=== PATIENT | male | born 1960 | race Two or more races ===

== ENCOUNTER 2019-05-23 20:44 | Emergency (ER) | payer MEDICARE, MEDICAID ==
[2019-05-23 23:07] LABS: CARBON DIOXIDE,CO2 34.2 mmol/L (21.0-32.0); POTASSIUM,K 4.6 mmol/L (3.5-5.1)
--- NOTE | 2019-05-23 23:11 | CR ---
Indication: Shortness of breath Technique: Chest 1 view Comparison: May 05, 2019 Findings/Impression: Stable cardiomegaly. Normal pulmonary vasculature. New, moderate size right pleural effusion. Small left pleural effusion. No new focal infiltrate or pneumothorax. No acute osseous abnormality. Dictated by Jonna Houston MD @ May 23 2019 11:08PM Signed by Dr. Jonna Houston @ May 23 2019 11:09PM
--- NOTE | 2019-05-24 01:47 | EDM.PDOC ---
ED HPI GENERAL MEDICAL PROBLEM - General Chief Complaint: Respiratory Problem Stated Complaint: HARD TIME BREATHING Time Seen by Provider: 05/23/19 22:00 Source of Information: Reports: Patient History Limitations: Reports: No Limitations - Related Data Allergies Allergy/AdvReac Type Severity Reaction Status Date / Time No Known Allergies Allergy Verified 05/23/19 21:22 Home Meds: Home Meds Acetaminophen [Tylenol] 2 tab PO DAILY 06/24/18 [History] Brimonidine/Timolol [Combigan 0.2%/0.5% Ophth Soln] 1 drop EARLF BID 06/24/18 [ History] Cholecalciferol (Vitamin D3) [Vitamin D3] 50,000 units PO ASDIRECTED 06/24/18 [ History] Diltiazem HCl [Dilt-XR] 120 mg PO DAILY 06/24/18 [History] Dorzolamide HCl 1 drop EYELF DAILY 06/24/18 [History] Furosemide 40 mg PO DAILY 06/24/18 [History] Insulin Glarg,Human.Rec.Analog [Lantus] 15 units SUBCUT BEDTIME 06/24/18 [ History] Insulin Lispro [HumaLOG] 5 units SUBCUT ASDIRECTED PRN 06/24/18 [History] Ketoconazole [Nizoral 2% Crm] 1 applic TOP ASDIRECTED PRN 06/24/18 [History] Latanoprost/Pf [Latanoprost 0.005% Eye Drop] 1 drop EYELF BEDTIME 06/24/18 [ History] Levothyroxine Sodium [Synthroid] 112 mcg PO ASDIRECTED 06/24/18 [History] Levothyroxine Sodium [Synthroid] 125 mg PO ASDIRECTED 06/24/18 [History] Losartan Potassium 100 mg PO DAILY 06/24/18 [History] Multivitamin/Iron/Folic Acid [Centrum Adults Tablet] 1 tab PO DAILY 06/24/18 [ History] Ranitidine HCl 150 mg PO BID 06/24/18 [History] Rosuvastatin Calcium 20 mg PO DAILY 06/24/18 [History] hydrOXYzine HCL [hydrOXYzine] 25 mg PO QID PRN 06/24/18 [History] traZODone HCl [Trazodone HCl] 50 mg PO BEDTIME 06/24/18 [History] Albuterol Sulfate [Albuterol Sulfate Hfa] 1 puff INH ASDIRECTED 05/23/19 [ History] Past Medical History HEENT History: Reports: Glaucoma, Impaired Vision, Other (See Below) Other HEENT History: wears glasses, no teeth, rt eye prostesis Cardiovascular History: Reports: Heart Murmur, High Cholesterol, Hypertension Other Cardiovascular History: "slight murmur" Respiratory History: Reports: None Gastrointestinal History: Reports: GERD Genitourinary History: Reports: Dialysis Other Genitourinary History: dialysis on tues, th and sat Musculoskeletal History: Reports: None Neurological History: Reports: Neuropathy, Diabetic Psychiatric History: Reports: None Endocrine/Metabolic History: Reports: Diabetes, Type II, Hypothyroidism Hematologic History: Reports: None Immunologic History: Reports: None Oncologic (Cancer) History: Reports: None Dermatologic History: Reports: None - Infectious Disease History Infectious Disease History: Reports: None - Past Surgical History Head Surgeries/Procedures: Reports: None HEENT Surgical History: Reports: Cataract Surgery, Eye Surgery Cardiovascular Surgical History: Reports: None Respiratory Surgical History: Reports: None GI Surgical History: Reports: Other (See Below) Other GI Surgeries/Procedures: hx laparoscopy Male Surgical History: Reports: Other (See Below) Other Male Surgeries/Procedures: peritoneal dialysis cath placement, AV fistula insertion-lt upper arm Endocrine Surgical History: Reports: None Neurological Surgical History: Reports: None Musculoskeletal Surgical History: Reports: Shoulder Surgery, Other (See Below) Other Musculoskeletal Surgeries/Procedures:: rt foot surgery x2, 2nd toe amputation-rt foot Oncologic Surgical History: Reports: None Dermatological Surgical History: Reports: None Social & Family History - Family History Family Medical History: Noncontributory - Tobacco Use Smoking Status *Q: Never Smoker - Caffeine Use Caffeine Use: Reports: Coffee - Recreational Drug Use Recreational Drug Use: No ED ROS GENERAL - Review of Systems Review Of Systems: See Below Constitutional: Reports: Fatigue HEENT: Reports: No Symptoms Respiratory: Reports: Shortness of Breath, Pleuritic Chest Pain Cardiovascular: Reports: Chest Pain, Dyspnea on Exertion Endocrine: Reports: Fatigue GI/Abdominal: Reports: No Symptoms : Reports: No Symptoms Musculoskeletal: Reports: No Symptoms Skin: Reports: No Symptoms Neurological: Reports: No Symptoms Psychiatric: Reports: No Symptoms Hematologic/Lymphatic: Reports: No Symptoms Immunologic: Reports: No Symptoms ED EXAM, GENERAL - Physical Exam Exam: See Below Free Text/Narrative:: 59-year-old male presents the emergency room with a chief complaint of chest pain and shortness of breath. Patient has decreased breath sounds on left and right. Patient denies chills or fever Exam Limited By: No Limitations General Appearance: Alert, WD/WN, No Apparent Distress Eye Exam: Bilateral Eye: Normal Fundi, Normal Inspection Ear Exam: Bilateral Ear: Auricle Normal, Canal Normal Nose: Normal Inspection, Normal Mucosa, No Blood Throat/Mouth: Normal Inspection, Normal Lips, Normal Teeth Head: Atraumatic, Normocephalic Neck: Normal Inspection, Supple, Non-Tender Respiratory/Chest: No Respiratory Distress, Lungs Clear Cardiovascular: Normal Peripheral Pulses, Regular Rate, Rhythm GI/Abdominal: Normal Bowel Sounds, Soft, Non-Tender (Male) Exam: Deferred Rectal (Males) Exam: Deferred Back Exam: Normal Inspection, Full Range of Motion Extremities: Normal Inspection, Normal Range of Motion Neurological: Alert, Oriented, CN II-XII Intact Psychiatric: Normal Affect, Normal Mood Skin Exam: Warm, Dry, Intact Lymphatic: No Adenopathy EKG INTERPRETATION Rhythm: NSR Rate (Beats/Min): 74 Course - Vital Signs Last Recorded V/S: Last Vital Signs Temp 98.3 F 05/23/19 21:23 Pulse 74 05/24/19 00:15 Resp 18 05/24/19 00:15 BP 155/84 H 05/24/19 00:15 Pulse Ox 98 05/24/19 00:15 - Orders/Labs/Meds Orders: Active Orders 24 hr Category Date Time Status EKG 12 Lead [EKG Documentation Completion] [RC] STAT Care 05/24/19 01:43 Ordered Labs: Laboratory Tests 05/23/19 05/23/19 05/24/19 Range/Units 22:34 22:34 00:36 WBC 4.45 (4.0-11.0) K/uL RBC 2.71 L (4.50-5.90) M/uL Hgb 8.8 L (13.0-17.0) g/dL Hct 26.9 L (38.0-50.0) % MCV 99.3 H (80.0-98.0) fL MCH 32.5 H (27.0-32.0) pg MCHC 32.7 (31.0-37.0) g/dL RDW Std Deviation 51.0 (28.0-62.0) fl RDW Coeff of René 14 (11.0-15.0) % Plt Count 134 L (150-400) K/uL MPV 9.00 (7.40-12.00) fL Neut % (Auto) 56.2 (48.0-80.0) % Lymph % (Auto) 24.3 (16.0-40.0) % [place] % (Auto) 16.6 H (0.0-15.0) % Eos % (Auto) 2.2 (0.0-7.0) % Baso % (Auto) 0.7 (0.0-1.5) % Neut # (Auto) 2.5 (1.4-5.7) K/uL Lymph # (Auto) 1.1 (0.6-2.4) K/uL [place] # (Auto) 0.7 (0.0-0.8) K/uL Eos # (Auto) 0.1 (0.0-0.7) K/uL Baso # (Auto) 0.0 (0.0-0.1) K/uL Nucleated RBC % 0.0 /100WBC Nucleated RBCs # 0 K/uL Sodium 140 (136-148) mmol/L Potassium 4.6 (3.5-5.1) mmol/L Chloride 100 (98-107) mmol/L Carbon Dioxide 34.2 H (21.0-32.0) mmol/L BUN 18 (7.0-18.0) mg/dL Creatinine 4.5 H (0.8-1.3) mg/dL Est Cr Clr Drug Dosing 17.52 mL/min Estimated GFR (MDRD) 13.6 ml/min Glucose 231 H (74-106) mg/dL Calcium 9.2 (8.5-10.1) mg/dL Total Bilirubin 0.6 (0.2-1.0) mg/dL AST 18 (15-37) IU/L ALT 19 (14-63) IU/L Alkaline Phosphatase 94 (46-116) U/L Troponin I 0.261 H* 0.264 H* (0.000-0.056) ng/mL Total Protein 6.7 (6.4-8.2) g/dL Albumin 3.3 L (3.4-5.0) g/dL Globulin 3.4 (2.6-4.0) g/dL Albumin/Globulin Ratio 1.0 (0.9-1.6) Departure - Departure Time of Disposition: 01:48 Disposition: DC/Tfer to Acute Hospital 02 Condition: Good Clinical Impression: Chest pain, Pleural effusion - Discharge Information Referrals: Conrado Wilde MD [Primary Care Provider] - Forms: ED Department Discharge Sepsis Event Note - Evaluation Sepsis Screening Result: No Definite Risk - Focused Exam Vital Signs: Vital Signs Temp Pulse Resp BP Pulse Ox 05/24/19 00:15 74 18 155/84 H 98 05/23/19 21:23 98.3 F 67 16 138/57 L 97 Date Exam was Performed: 05/24/19 Time Exam was Performed: 01:48 - My Orders Last 24 Hours: My Active Orders 05/24/19 01:43 EKG 12 Lead [EKG Documentation Completion] [RC] STAT - Assessment/Plan Last 24 Hours: My Active Orders 05/24/19 01:43 EKG 12 Lead [EKG Documentation Completion] [RC] STAT
== END 2019-05-24 02:45 ==
LOC: MW.ED 20:44
DX: J90 Pleural effusion, not elsewhere classified (principal); E78.00 Pure hypercholesterolemia, unspecified; I10 Essential (primary) hypertension; K21.9 Gastro-esophageal reflux disease without esophagitis; E11.40 Type 2 diabetes mellitus with diabetic neuropathy, unspecified; E03.9 Hypothyroidism, unspecified; Z79.4 Long term (current) use of insulin; Z79.899 Other long term (current) drug therapy; Z99.2 Dependence on renal dialysis
CPT/HCPCS: 36415; 71045; 71045-26; 80053; 84484; 85025; 99285; 99285-25

== ENCOUNTER 2019-06-12 05:47 | Emergency (ER) | payer MEDICARE, MEDICAID ==
--- NOTE | 2019-06-12 06:20 | EDM.PDOC ---
ED HPI GENERAL MEDICAL PROBLEM - General Chief Complaint: ENT Problem Stated Complaint: DIZZINESS Time Seen by Provider: 06/12/19 06:15 Source of Information: Reports: Patient - History of Present Illness INITIAL COMMENTS - FREE TEXT/NARRATIVE: The patient is a 59-year-old male dialysis patient who presents to the ER for dizziness and a fullness in his left ear. The patient states that he has been intermittently lightheaded and dizzy for the last few months. Sometimes if he stands up quickly it comes on but then it goes away. No unusual headaches, no fevers, no chills, no syncope or near syncope, no palpitations, chest pain, no shortness of breath, no visual changes, no paresthesias, no unilateral weakness , no generalized weakness. He states that he was in his normal state of health when he woke up this morning with a fullness in his left ear and he cannot hear much out of his left ear. His right ear is fine. There is no pain. Associated with this left ear fullness he just feels lightheaded like things are moving but they are not spinning. No nasal congestion, no other acute complaints. no pain Pain Score (Numeric/FACES): 0 - Related Data Allergies Allergy/AdvReac Type Severity Reaction Status Date / Time No Known Allergies Allergy Verified 06/12/19 05:56 Home Meds: Home Meds Acetaminophen [Tylenol] 2 tab PO DAILY 06/24/18 [History] Brimonidine/Timolol [Combigan 0.2%/0.5% Ophth Soln] 1 drop EARLF BID 06/24/18 [ History] Cholecalciferol (Vitamin D3) [Vitamin D3] 50,000 units PO ASDIRECTED 06/24/18 [ History] Diltiazem HCl [Dilt-XR] 120 mg PO DAILY 06/24/18 [History] Dorzolamide HCl 1 drop EYELF DAILY 06/24/18 [History] Furosemide 40 mg PO DAILY 06/24/18 [History] Insulin Glarg,Human.Rec.Analog [Lantus] 15 units SUBCUT BEDTIME 06/24/18 [ History] Insulin Lispro [HumaLOG] 5 units SUBCUT ASDIRECTED PRN 06/24/18 [History] Ketoconazole [Nizoral 2% Crm] 1 applic TOP ASDIRECTED PRN 06/24/18 [History] Latanoprost/Pf [Latanoprost 0.005% Eye Drop] 1 drop EYELF BEDTIME 06/24/18 [ History] Levothyroxine Sodium [Synthroid] 112 mcg PO ASDIRECTED 06/24/18 [History] Levothyroxine Sodium [Synthroid] 125 mg PO ASDIRECTED 06/24/18 [History] Losartan Potassium 100 mg PO DAILY 06/24/18 [History] Multivitamin/Iron/Folic Acid [Centrum Adults Tablet] 1 tab PO DAILY 06/24/18 [ History] Ranitidine HCl 150 mg PO BID 06/24/18 [History] Rosuvastatin Calcium 20 mg PO DAILY 06/24/18 [History] hydrOXYzine HCL [hydrOXYzine] 25 mg PO QID PRN 06/24/18 [History] traZODone HCl [Trazodone HCl] 50 mg PO BEDTIME 06/24/18 [History] Albuterol Sulfate [Albuterol Sulfate Hfa] 1 puff INH ASDIRECTED 05/23/19 [ History] Past Medical History HEENT History: Reports: Glaucoma, Impaired Vision, Other (See Below) Other HEENT History: wears glasses, no teeth, rt eye prostesis Cardiovascular History: Reports: Heart Murmur, High Cholesterol, Hypertension Other Cardiovascular History: "slight murmur" Respiratory History: Reports: None Gastrointestinal History: Reports: GERD Genitourinary History: Reports: Dialysis Other Genitourinary History: dialysis on thursday, thursday and thursday Musculoskeletal History: Reports: None Neurological History: Reports: Neuropathy, Diabetic Psychiatric History: Reports: None Endocrine/Metabolic History: Reports: Diabetes, Type II, Hypothyroidism Hematologic History: Reports: None Immunologic History: Reports: None Oncologic (Cancer) History: Reports: None Dermatologic History: Reports: None - Infectious Disease History Infectious Disease History: Reports: None - Past Surgical History Head Surgeries/Procedures: Reports: None HEENT Surgical History: Reports: Cataract Surgery, Eye Surgery Cardiovascular Surgical History: Reports: None Respiratory Surgical History: Reports: None GI Surgical History: Reports: Other (See Below) Other GI Surgeries/Procedures: hx laparoscopy Male Surgical History: Reports: Other (See Below) Other Male Surgeries/Procedures: peritoneal dialysis cath placement, AV fistula insertion-lt upper arm Endocrine Surgical History: Reports: None Neurological Surgical History: Reports: None Musculoskeletal Surgical History: Reports: Shoulder Surgery, Other (See Below) Other Musculoskeletal Surgeries/Procedures:: rt foot surgery x2, 2nd toe amputation-rt foot Oncologic Surgical History: Reports: None Dermatological Surgical History: Reports: None Social & Family History - Family History Family Medical History: Noncontributory - Tobacco Use Smoking Status *Q: Never Smoker - Caffeine Use Caffeine Use: Reports: Coffee - Recreational Drug Use Recreational Drug Use: No ED ROS GENERAL - Review of Systems Review Of Systems: See Below (Positive for decreased hearing in the left ear, positive for dizziness, negative for headache, negative for chest pain, negative for fevers, negative for chills, negative for unilateral weakness, all other Positives and pertinent negatives as per HPI. All other pertinent systems were reviewed and are negative) ED EXAM, DIZZINESS - Physical Exam Exam: See Below Text/Narrative:: Constitutional: No acute distress, Non-toxic appearance HEENT.: Normocephalic, Atraumatic, left eye is present and has normally reactive pupils and extraocular muscle is intact, External ears are atraumatic, right tympanic membrane is normal, left tympanic membrane has no effusions, no purulence, but it does appear retracted oropharynx clear and moist without lesions or masses, nares are patent without epistaxis Neck: Normal range of motion, Trachea Midline, No stridor Respiratory.: No respiratory distress, No tachypnea, Lungs Clear to Auscultation bilaterally without wheezes, rales, or rhonchi Cardiovascular.: Regular rate and Rhythm without murmurs, rubs, or gallops, good peripheral perfusion GI: Abdomen soft and non tender, no masses, no rebound, rigidity, or guarding Genital Urinary: Deferred Musculoskeletal: Good range of motion. All 4 extremities present and atraumatic , no edema Back: Full Range of Motion Skin: Warm, Dry, Color is ethnicity appropriate, No acute rash. Lymphatic: No lymphadenopathy noted Neurological: Alert, Awake and oriented x 3, No focal deficits noted appreciate , normal gait, cranial nerves grossly intact, cerebellar function tests intact, GCS 15 Psych: Affect, Judgement, mood normal Course - Vital Signs Text/Narrative:: While it is recognized that this is a dialysis patient who has the potential for numerous comorbidities, he is not describing anything per history and there is nothing on exam that is concerning for any malignant pathology such as an intracranial hemorrhage, subarachnoid hemorrhage, cerebral venous thrombosis, brain mass, acute electrolyte disorders, sepsis, etc. Waking up with decreased hearing in his left ear with an associated retracted tympanic membrane giving him nonspecific dizziness and a normal neurological exam is most consistent with eustachian tube dysfunction and at this time the patient does not require any imaging, work, etc. This time the patient is stable for discharge and close outpatient follow-up with his primary care physician if symptoms do not resolve within the next couple of days. Last Recorded V/S: Last Vital Signs Temp 36.4 C 06/12/19 05:56 Pulse 87 06/12/19 05:56 Resp 16 06/12/19 05:56 BP 155/69 H 06/12/19 05:56 Pulse Ox 100 06/12/19 05:56 Departure - Departure Time of Disposition: 06:20 Disposition: Home, Self-Care 01 Condition: Good Clinical Impression: Dizziness, nonspecific - Discharge Information Instructions: Dizziness, [id number] Referrals: Conrado Wilde MD [Primary Care Provider] - Additional Instructions: Dizziness Dizziness is a common problem. It makes you feel unsteady or lightheaded. You may feel like you are about to pass out (faint). Dizziness can lead to injury if you stumble or fall. Anyone can get dizzy, but dizziness is more common in older adults. This condition can be caused by a number of things, but fortunately at this time you do not have any signs of anything 'bad'. Follow-up with your doctor if you do not improve in the next several days Return to the emergency department if you start to have chest pain, you feel like your heart is racing, you are passing out, you have trouble speaking, you have trouble moving part of your face or part of your body or any other concerns Sepsis Event Note - Evaluation Sepsis Screening Result: No Definite Risk - Focused Exam Vital Signs: Vital Signs Temp Pulse Resp BP Pulse Ox 06/12/19 05:56 36.4 C 87 16 155/69 H 100 Date Exam was Performed: 06/12/19 Time Exam was Performed: 06:14
== END 2019-06-12 06:30 | disposition home or self-care (01) ==
LOC: MW.ED 05:47
DX: R42 Dizziness and giddiness (principal); E78.00 Pure hypercholesterolemia, unspecified; I10 Essential (primary) hypertension; K21.9 Gastro-esophageal reflux disease without esophagitis; E11.40 Type 2 diabetes mellitus with diabetic neuropathy, unspecified; E03.9 Hypothyroidism, unspecified; Z99.2 Dependence on renal dialysis; Z79.899 Other long term (current) drug therapy; Z79.4 Long term (current) use of insulin
CPT/HCPCS: 99283

== ENCOUNTER 2019-06-12 17:48 | Emergency (ER) | payer MEDICARE, MEDICAID ==
[2019-06-12] MEDS: Ondansetron 4 MG/2 ML SDV IVPUSH ONE (18:08)
[2019-06-12] MEDS: Meclizine 25 MG Tab PO ONE (18:10)
--- NOTE | 2019-06-12 18:11 | EDM.PDOC ---
ED HPI GENERAL MEDICAL PROBLEM - General Chief Complaint: General Stated Complaint: dizzness,vomiting Time Seen by Provider: 06/12/19 18:08 Source of Information: Reports: Patient History Limitations: Reports: No Limitations - History of Present Illness INITIAL COMMENTS - FREE TEXT/NARRATIVE: Patient 59-year-old male with a past medical history of diabetes end-stage renal disease on hemodialysis on Thursday schedule. Patient presents with a chief complaint of dizziness. Patient states the dizziness started yesterday morning. Patient reports feeling worsening dizziness when he stands up from a seated position. Patient feels a spinning sensation of his head when he does so. Patient denies any prior similar symptoms. Patient states that he started vomiting this morning has been vomiting continuously all day. Patient was seen in this morning for the same complaint and was deemed to be benign peripheral vertigo. Patient states his symptoms have worsened and he came back to the ER. Patient denies any fevers, headache, no extremity or upper extremity weakness. Patient denies tinnitus. Pmhx: Per HPI and chart Pshx: Per chart Family Hx: noncontributory Smoking history? no Etoh use? none Drug use? none In addition to that documented in the HPI above, the additional ROS was obtained : Constitutional: Denies fevers or chills Eyes: Denies vision changes ENMT: Denies sore throat CV: Denies chest pain Resp: Denies SOB GI: Per HPI : Denies painful urination MSK: Denies recent trauma Skin: Denies new rashes Neuro: Per HPI Endocrine: Denies unexpected weight loss Heme: Denies bleeding disorders I have reviewed the triage vital signs Const: Well nourished, well developed, appears stated age Eyes: PERRL, no conjunctival injection HENT: NCAT, Neck supple without meningismus CV: RRR, Warm, well-perfused extremities RESP: CTAB, Unlabored respiratory effort GI: soft, non-tender, non-distended, no masses MSK: No gross deformities appreciated Skin: Warm, dry. No rashes Neuro: Dizziness reproduced with rotation of the head. Alert, heel builder machine II-XII intact. [id number] intact. Sensation and motor function of extremities grossly intact. Psych: Appropriate mood and affect Assessment and plan: Patient 59-year-old male with complaints of dizziness and vomiting. Patient's vital signs within normal limits. Patient's exam is significant for reproducible dizziness with head movements as well as lateral gaze. Patient has no other significant neurologic deficits such as focal weakness or abnormal cerebellar exam. Patient's labs were checked to rule out significant electrolyte abnormalities given his ESRD status and vomiting. Patient's slightly hyperkalemic with a level of 5.7. However, the patient had a EKG which was unremarkable for signs related to hyperkalemia. No indication for emergent dialysis at this time since the patient has regularly scheduled dialysis in the next day. This patient's dizziness seems likely secondary to a benign peripheral vertigo process. However, the patient needs emesis controlled. His vomiting continued after Zofran and was given Reglan prior to signout. Patient was signed out to overnight attending pending tolerance of p.o. If the patient is able to tolerate oral fluids, I believe the patient will be able to be discharged. He can be discharged with an antiemetic as his QTC is within normal limits. He will be recommended to stop tramadol while taking antiemetics. - Related Data Allergies Allergy/AdvReac Type Severity Reaction Status Date / Time No Known Allergies Allergy Verified 06/12/19 18:04 Home Meds: Home Meds Acetaminophen [Tylenol] 2 tab PO DAILY 06/24/18 [History] Brimonidine/Timolol [Combigan 0.2%/0.5% Ophth Soln] 1 drop EARLF BID 06/24/18 [ History] Cholecalciferol (Vitamin D3) [Vitamin D3] 50,000 units PO ASDIRECTED 06/24/18 [ History] Diltiazem HCl [Dilt-XR] 120 mg PO DAILY 06/24/18 [History] Dorzolamide HCl 1 drop EYELF DAILY 06/24/18 [History] Furosemide 40 mg PO DAILY 06/24/18 [History] Insulin Glarg,Human.Rec.Analog [Lantus] 15 units SUBCUT BEDTIME 06/24/18 [ History] Insulin Lispro [HumaLOG] 5 units SUBCUT ASDIRECTED PRN 06/24/18 [History] Ketoconazole [Nizoral 2% Crm] 1 applic TOP ASDIRECTED PRN 06/24/18 [History] Latanoprost/Pf [Latanoprost 0.005% Eye Drop] 1 drop EYELF BEDTIME 06/24/18 [ History] Levothyroxine Sodium [Synthroid] 112 mcg PO ASDIRECTED 06/24/18 [History] Levothyroxine Sodium [Synthroid] 125 mg PO ASDIRECTED 06/24/18 [History] Losartan Potassium 100 mg PO DAILY 06/24/18 [History] Multivitamin/Iron/Folic Acid [Centrum Adults Tablet] 1 tab PO DAILY 06/24/18 [ History] Ranitidine HCl 150 mg PO BID 06/24/18 [History] Rosuvastatin Calcium 20 mg PO DAILY 06/24/18 [History] hydrOXYzine HCL [hydrOXYzine] 25 mg PO QID PRN 06/24/18 [History] traZODone HCl [Trazodone HCl] 50 mg PO BEDTIME 06/24/18 [History] Albuterol Sulfate [Albuterol Sulfate Hfa] 1 puff INH ASDIRECTED 05/23/19 [ History] Past Medical History HEENT History: Reports: Glaucoma, Impaired Vision, Other (See Below) Other HEENT History: wears glasses, no teeth, rt eye prostesis Cardiovascular History: Reports: Heart Murmur, High Cholesterol, Hypertension Other Cardiovascular History: "slight murmur" Respiratory History: Reports: None Gastrointestinal History: Reports: GERD Genitourinary History: Reports: Dialysis Other Genitourinary History: dialysis on thursday, thursday and thursday Musculoskeletal History: Reports: None Neurological History: Reports: Neuropathy, Diabetic Psychiatric History: Reports: None Endocrine/Metabolic History: Reports: Diabetes, Type II, Hypothyroidism Hematologic History: Reports: None Immunologic History: Reports: None Oncologic (Cancer) History: Reports: None Dermatologic History: Reports: None - Infectious Disease History Infectious Disease History: Reports: None - Past Surgical History Head Surgeries/Procedures: Reports: None HEENT Surgical History: Reports: Cataract Surgery, Eye Surgery Cardiovascular Surgical History: Reports: None Respiratory Surgical History: Reports: None GI Surgical History: Reports: Other (See Below) Other GI Surgeries/Procedures: hx laparoscopy Male Surgical History: Reports: Other (See Below) Other Male Surgeries/Procedures: peritoneal dialysis cath placement, AV fistula insertion-lt upper arm Endocrine Surgical History: Reports: None Neurological Surgical History: Reports: None Musculoskeletal Surgical History: Reports: Shoulder Surgery, Other (See Below) Other Musculoskeletal Surgeries/Procedures:: rt foot surgery x2, 2nd toe amputation-rt foot Oncologic Surgical History: Reports: None Dermatological Surgical History: Reports: None Social & Family History - Family History Family Medical History: Noncontributory - Tobacco Use Smoking Status *Q: Never Smoker - Caffeine Use Caffeine Use: Reports: Coffee ED ROS GENERAL - Review of Systems Review Of Systems: See Below ED EXAM, GENERAL - Physical Exam Exam: See Below Course - Vital Signs Last Recorded V/S: Last Vital Signs Temp 35.3 C L 06/12/19 20:17 Pulse 81 06/12/19 20:17 Resp 16 06/12/19 20:17 BP 159/75 H 06/12/19 20:17 Pulse Ox 98 06/12/19 20:17 - Orders/Labs/Meds Orders: Active Orders 24 hr Category Date Time Status Blood Glucose Check, Bedside [RC] ONETIME Care 06/12/19 18:08 Active EKG Documentation Completion [RC] STAT Care 06/12/19 18:28 Active Labs: Laboratory Tests 06/12/19 06/12/19 06/12/19 Range/Units 18:00 18:00 18:00 WBC 7.31 (4.0-11.0) K/uL RBC 3.50 L (4.50-5.90) M/uL Hgb 11.4 L (13.0-17.0) g/dL Hct 35.1 L (38.0-50.0) % MCV 100.3 H (80.0-98.0) fL MCH 32.6 H (27.0-32.0) pg MCHC 32.5 (31.0-37.0) g/dL RDW Std Deviation 53.3 (28.0-62.0) fl RDW Coeff of René 15 (11.0-15.0) % Plt Count 242 (150-400) K/uL MPV 9.10 (7.40-12.00) fL Neut % (Auto) 59.5 (48.0-80.0) % Lymph % (Auto) 28.9 (16.0-40.0) % Bryan % (Auto) 9.3 (0.0-15.0) % Eos % (Auto) 1.6 (0.0-7.0) % Baso % (Auto) 0.7 (0.0-1.5) % Neut # (Auto) 4.4 (1.4-5.7) K/uL Lymph # (Auto) 2.1 (0.6-2.4) K/uL Bryan # (Auto) 0.7 (0.0-0.8) K/uL Eos # (Auto) 0.1 (0.0-0.7) K/uL Baso # (Auto) 0.1 (0.0-0.1) K/uL Nucleated RBC % 0.0 /100WBC Nucleated RBCs # 0 K/uL VBG pH 7.50 H (7.31-7.41) VBG pCO2 41 (35-45) mmHG VBG pO2 72 H (30-40) mmHG VBG HCO3 32 H (22-30) mEq/L VBG Total CO2 29 L (41-51) mmol/L VBG Base Excess 7.7 H (-3.0-3.0) Sodium 139 (136-148) mmol/L Potassium 5.7 H (3.5-5.1) mmol/L Chloride 98 (98-107) mmol/L Carbon Dioxide 31.6 (21.0-32.0) mmol/L BUN 46 H (7.0-18.0) mg/dL Creatinine 7.7 H (0.8-1.3) mg/dL Est Cr Clr Drug Dosing TNP Estimated GFR (MDRD) 7.3 ml/min Glucose 142 H (74-106) mg/dL POC Glucose (60-110) mg/dL Calcium 10.0 (8.5-10.1) mg/dL Ketones (NEG) 06/12/19 06/12/19 Range/Units 18:00 18:13 WBC (4.0-11.0) K/uL RBC (4.50-5.90) M/uL Hgb (13.0-17.0) g/dL Hct (38.0-50.0) % MCV (80.0-98.0) fL MCH (27.0-32.0) pg MCHC (31.0-37.0) g/dL RDW Std Deviation (28.0-62.0) fl RDW Coeff of René (11.0-15.0) % Plt Count (150-400) K/uL MPV (7.40-12.00) fL Neut % (Auto) (48.0-80.0) % Lymph % (Auto) (16.0-40.0) % Bryan % (Auto) (0.0-15.0) % Eos % (Auto) (0.0-7.0) % Baso % (Auto) (0.0-1.5) % Neut # (Auto) (1.4-5.7) K/uL Lymph # (Auto) (0.6-2.4) K/uL Bryan # (Auto) (0.0-0.8) K/uL Eos # (Auto) (0.0-0.7) K/uL Baso # (Auto) (0.0-0.1) K/uL Nucleated RBC % /100WBC Nucleated RBCs # K/uL VBG pH (7.31-7.41) VBG pCO2 (35-45) mmHG VBG pO2 (30-40) mmHG VBG HCO3 (22-30) mEq/L VBG Total CO2 (41-51) mmol/L VBG Base Excess (-3.0-3.0) Sodium (136-148) mmol/L Potassium (3.5-5.1) mmol/L Chloride (98-107) mmol/L Carbon Dioxide (21.0-32.0) mmol/L BUN (7.0-18.0) mg/dL Creatinine (0.8-1.3) mg/dL Est Cr Clr Drug Dosing Estimated GFR (MDRD) ml/min Glucose (74-106) mg/dL POC Glucose 133 H (60-110) mg/dL Calcium (8.5-10.1) mg/dL Ketones NEGATIVE (NEG) Meds: Medications Discontinued Medications Generic Name Dose Route Start Last Admin Trade Name Freq PRN Reason Stop Dose Admin Meclizine HCl 25 mg 06/12/19 18:08 06/12/19 18:10 Antivert PO 06/12/19 18:09 25 mg ONETIME ONE Administration Metoclopramide HCl 10 mg 06/12/19 18:38 06/12/19 18:43 Reglan IVPUSH 06/12/19 18:39 10 mg ONETIME ONE Administration Ondansetron HCl 4 mg 06/12/19 18:01 06/12/19 18:08 Zofran IVPUSH 06/12/19 18:02 4 mg ONETIME ONE Administration Departure - Departure Time of Disposition: 20:00 Disposition: Home, Self-Care 01 Clinical Impression: Dizziness, Vomiting - Discharge Information Instructions: Nausea and Vomiting, Adult, [id number] Referrals: Conrado Wilde MD [Primary Care Provider] - Forms: ED Department Discharge Sepsis Event Note - Evaluation Sepsis Screening Result: No Definite Risk - Focused Exam Vital Signs: Vital Signs Temp Pulse Resp BP Pulse Ox 06/12/19 20:17 35.3 C L 81 16 159/75 H 98 06/12/19 20:09 80 16 97 Date Exam was Performed: 06/13/19 Time Exam was Performed: 07:12 - My Orders Last 24 Hours: My Active Orders 06/12/19 18:08 Blood Glucose Check, Bedside [RC] ONETIME 06/12/19 18:28 EKG Documentation Completion [RC] STAT - Assessment/Plan Last 24 Hours: My Active Orders 06/12/19 18:08 Blood Glucose Check, Bedside [RC] ONETIME 06/12/19 18:28 EKG Documentation Completion [RC] STAT
[2019-06-12 18:24] LABS: BLOOD UREA NITROGEN,BUN 46 mg/dL (7.0-18.0); CARBON DIOXIDE,CO2 31.6 mmol/L (21.0-32.0); CHLORIDE,CL 98 mmol/L (98-107); GLUCOSE RANDOM 142 mg/dL (74-106); POTASSIUM,K 5.7 mmol/L (3.5-5.1); SODIUM,NA 139 mmol/L (136-148)
[2019-06-12] MEDS: Metoclopramide 10 MG/2 ML SDV IVPUSH ONE (18:43)
--- NOTE | 2019-06-12 19:43 | CT ---
Head CT Technique: Multiple axial sections through the brain were obtained. Intravenous contrast was not utilized. Comparison: No prior intracranial imaging is available. Findings: Ventricles along with basal cisterns and sulci over the convexities are within normal limits for the patient's age. 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 No abnormal parenchymal densities are seen. No evidence of intracranial hemorrhage. No midline shift or mass effect is seen. Bone window settings were reviewed. Atherosclerotic calcification is seen within the carotid siphon. No acute calvarial abnormality is appreciated. Visualized mastoid sinuses and visualized paranasal sinuses show nothing acute. Impression: 1. Findings believed to be incidental as noted above. 2. Nothing acute is appreciated on noncontrast head CT exam. Diagnostic code #2 Study was dictated in MDT
--- NOTE | 2019-06-12 20:11 | EDM.PDOC ---
ED HPI GENERAL MEDICAL PROBLEM - General Chief Complaint: General Stated Complaint: dizzness,vomiting Time Seen by Provider: 06/12/19 18:08 Source of Information: Reports: Patient History Limitations: Reports: No Limitations - History of Present Illness INITIAL COMMENTS - FREE TEXT/NARRATIVE: Patient 59-year-old male with a past medical history of diabetes end-stage renal disease on hemodialysis on Thursday schedule. Patient presents with a chief complaint of dizziness. Patient states the dizziness started yesterday morning. Patient reports feeling worsening dizziness when he stands up from a seated position. Patient feels a spinning sensation of his head when he does so. Patient denies any prior similar symptoms. Patient states that he started vomiting this morning has been vomiting continuously all day. Patient was seen in this morning for the same complaint and was deemed to be benign peripheral vertigo. Patient states his symptoms have worsened and he came back to the ER. Patient denies any fevers, headache, no extremity or upper extremity weakness. Patient denies tinnitus. Pmhx: Per HPI and chart Pshx: Per chart Family Hx: noncontributory Smoking history? no Etoh use? none Drug use? none In addition to that documented in the HPI above, the additional ROS was obtained : Constitutional: Denies fevers or chills Eyes: Denies vision changes ENMT: Denies sore throat CV: Denies chest pain Resp: Denies SOB GI: Per HPI : Denies painful urination MSK: Denies recent trauma Skin: Denies new rashes Neuro: Per HPI Endocrine: Denies unexpected weight loss Heme: Denies bleeding disorders I have reviewed the triage vital signs Const: Well nourished, well developed, appears stated age Eyes: PERRL, no conjunctival injection HENT: NCAT, Neck supple without meningismus CV: RRR, Warm, well-perfused extremities RESP: CTAB, Unlabored respiratory effort GI: soft, non-tender, non-distended, no masses MSK: No gross deformities appreciated Skin: Warm, dry. No rashes Neuro: Alert, director business systems II-XII intact. [id number] intact. Sensation and motor function of extremities grossly intact. Psych: Appropriate mood and affect Assessment and plan: - Related Data Allergies Allergy/AdvReac Type Severity Reaction Status Date / Time No Known Allergies Allergy Verified 06/12/19 18:04 Home Meds: Home Meds Acetaminophen [Tylenol] 2 tab PO DAILY 06/24/18 [History] Brimonidine/Timolol [Combigan 0.2%/0.5% Ophth Soln] 1 drop EARLF BID 06/24/18 [ History] Cholecalciferol (Vitamin D3) [Vitamin D3] 50,000 units PO ASDIRECTED 06/24/18 [ History] Diltiazem HCl [Dilt-XR] 120 mg PO DAILY 06/24/18 [History] Dorzolamide HCl 1 drop EYELF DAILY 06/24/18 [History] Furosemide 40 mg PO DAILY 06/24/18 [History] Insulin Glarg,Human.Rec.Analog [Lantus] 15 units SUBCUT BEDTIME 06/24/18 [ History] Insulin Lispro [HumaLOG] 5 units SUBCUT ASDIRECTED PRN 06/24/18 [History] Ketoconazole [Nizoral 2% Crm] 1 applic TOP ASDIRECTED PRN 06/24/18 [History] Latanoprost/Pf [Latanoprost 0.005% Eye Drop] 1 drop EYELF BEDTIME 06/24/18 [ History] Levothyroxine Sodium [Synthroid] 112 mcg PO ASDIRECTED 06/24/18 [History] Levothyroxine Sodium [Synthroid] 125 mg PO ASDIRECTED 06/24/18 [History] Losartan Potassium 100 mg PO DAILY 06/24/18 [History] Multivitamin/Iron/Folic Acid [Centrum Adults Tablet] 1 tab PO DAILY 06/24/18 [ History] Ranitidine HCl 150 mg PO BID 06/24/18 [History] Rosuvastatin Calcium 20 mg PO DAILY 06/24/18 [History] hydrOXYzine HCL [hydrOXYzine] 25 mg PO QID PRN 06/24/18 [History] traZODone HCl [Trazodone HCl] 50 mg PO BEDTIME 06/24/18 [History] Albuterol Sulfate [Albuterol Sulfate Hfa] 1 puff INH ASDIRECTED 05/23/19 [ History] Past Medical History HEENT History: Reports: Glaucoma, Impaired Vision, Other (See Below) Other HEENT History: wears glasses, no teeth, rt eye prostesis Cardiovascular History: Reports: Heart Murmur, High Cholesterol, Hypertension Other Cardiovascular History: "slight murmur" Respiratory History: Reports: None Gastrointestinal History: Reports: GERD Genitourinary History: Reports: Dialysis Other Genitourinary History: dialysis on thursday, thursday and thursday Musculoskeletal History: Reports: None Neurological History: Reports: Neuropathy, Diabetic Psychiatric History: Reports: None Endocrine/Metabolic History: Reports: Diabetes, Type II, Hypothyroidism Hematologic History: Reports: None Immunologic History: Reports: None Oncologic (Cancer) History: Reports: None Dermatologic History: Reports: None - Infectious Disease History Infectious Disease History: Reports: None - Past Surgical History Head Surgeries/Procedures: Reports: None HEENT Surgical History: Reports: Cataract Surgery, Eye Surgery Cardiovascular Surgical History: Reports: None Respiratory Surgical History: Reports: None GI Surgical History: Reports: Other (See Below) Other GI Surgeries/Procedures: hx laparoscopy Male Surgical History: Reports: Other (See Below) Other Male Surgeries/Procedures: peritoneal dialysis cath placement, AV fistula insertion-lt upper arm Endocrine Surgical History: Reports: None Neurological Surgical History: Reports: None Musculoskeletal Surgical History: Reports: Shoulder Surgery, Other (See Below) Other Musculoskeletal Surgeries/Procedures:: rt foot surgery x2, 2nd toe amputation-rt foot Oncologic Surgical History: Reports: None Dermatological Surgical History: Reports: None Social & Family History - Family History Family Medical History: Noncontributory - Tobacco Use Smoking Status *Q: Never Smoker - Caffeine Use Caffeine Use: Reports: Coffee ED ROS GENERAL - Review of Systems Review Of Systems: See Below ED EXAM, GENERAL - Physical Exam Exam: See Below Free Text/Narrative:: Patient 59-year-old male with a past medical history of diabetes end-stage renal disease on hemodialysis on Thursday schedule. Patient presents with a chief complaint of dizziness. Patient states the dizziness started yesterday morning. Patient reports feeling worsening dizziness when he stands up from a seated position. Patient feels a spinning sensation of his head when he does so. Patient denies any prior similar symptoms. Patient states that he started vomiting this morning has been vomiting continuously all day. Patient was seen in this morning for the same complaint and was deemed to be benign peripheral vertigo. Patient states his symptoms have worsened and he came back to the ER. Patient denies any fevers, headache, no extremity or upper extremity weakness. Patient denies tinnitus. Pmhx: Per HPI and chart Pshx: Per chart Family Hx: noncontributory Smoking history? no Etoh use? none Drug use? none In addition to that documented in the HPI above, the additional ROS was obtained : Constitutional: Denies fevers or chills Eyes: Denies vision changes ENMT: Denies sore throat CV: Denies chest pain Resp: Denies SOB GI: Per HPI : Denies painful urination MSK: Denies recent trauma Skin: Denies new rashes Neuro: Per HPI Endocrine: Denies unexpected weight loss Heme: Denies bleeding disorders I have reviewed the triage vital signs Const: Well nourished, well developed, appears stated age Eyes: PERRL, no conjunctival injection HENT: NCAT, Neck supple without meningismus CV: RRR, Warm, well-perfused extremities RESP: CTAB, Unlabored respiratory effort GI: soft, non-tender, non-distended, no masses MSK: No gross deformities appreciated Skin: Warm, dry. No rashes Neuro: Alert, director business systems II-XII intact. [id number] intact. Sensation and motor function of extremities grossly intact. Psych: Appropriate mood and affect Assessment and plan: Course - Vital Signs Text/Narrative:: Please see the original H&P as the patient's care is been handed off to me. I saw the patient early this morning for the complaint of nonspecific dizziness and I felt that this was related to some type of eustachian tube dysfunction as the patient was complained that he could not hear out of his left ear and his left tympanic membrane was retracted. His neurological exam was completely unremarkable and despite this patient's risk factors, he does not have any other concerning complaint such as headache, unilateral weakness, palpitations, chest pain, fevers, etc. Patient returned because he has been throwing up as well as dizzy so more extensive work-up had been initiated. The patient had been given some Zofran but still vomited so than he was given some Reglan. Lab work is unremarkable except for very mild hyperkalemia -myself and Dr. Acuña feel is simply due to this patient's renal failure and the patient is getting dialysis tomorrow. He has not vomited since and he still is able to walk although he still feels "dizzy". I added a CT scan of the brain given this patient's comorbidities and since he has returned to make sure that I cannot see any signs of any acute pathology such as a chronic subdural hematoma, obvious brain mass, cerebral edema, hydrocephalus, etc. the CT scan was reviewed by me and over read by radiology as no acute process. While dizziness can be caused by eustachian tube dysfunction retracted eardrums it can also be caused by nausea and dizziness can also cause vomiting. Regardless, the patient still has no signs of any acute malignant process and at this time the patient is stable for discharge with a prescription for Reglan. Last Recorded V/S: Last Vital Signs Temp 35.5 C L 06/12/19 18:01 Pulse 79 06/12/19 18:43 Resp 16 06/12/19 18:43 BP 142/66 H 06/12/19 18:43 Pulse Ox 99 06/12/19 18:43 - Orders/Labs/Meds Orders: Active Orders 24 hr Category Date Time Status Blood Glucose Check, Bedside [RC] ONETIME Care 06/12/19 18:08 Active EKG Documentation Completion [RC] STAT Care 06/12/19 18:28 Active Labs: Laboratory Tests 06/12/19 06/12/19 06/12/19 Range/Units 18:00 18:00 18:00 WBC 7.31 (4.0-11.0) K/uL RBC 3.50 L (4.50-5.90) M/uL Hgb 11.4 L (13.0-17.0) g/dL Hct 35.1 L (38.0-50.0) % MCV 100.3 H (80.0-98.0) fL MCH 32.6 H (27.0-32.0) pg MCHC 32.5 (31.0-37.0) g/dL RDW Std Deviation 53.3 (28.0-62.0) fl RDW Coeff of René 15 (11.0-15.0) % Plt Count 242 (150-400) K/uL MPV 9.10 (7.40-12.00) fL Neut % (Auto) 59.5 (48.0-80.0) % Lymph % (Auto) 28.9 (16.0-40.0) % Brown % (Auto) 9.3 (0.0-15.0) % Eos % (Auto) 1.6 (0.0-7.0) % Baso % (Auto) 0.7 (0.0-1.5) % Neut # (Auto) 4.4 (1.4-5.7) K/uL Lymph # (Auto) 2.1 (0.6-2.4) K/uL Brown # (Auto) 0.7 (0.0-0.8) K/uL Eos # (Auto) 0.1 (0.0-0.7) K/uL Baso # (Auto) 0.1 (0.0-0.1) K/uL Nucleated RBC % 0.0 /100WBC Nucleated RBCs # 0 K/uL VBG pH 7.50 H (7.31-7.41) VBG pCO2 41 (35-45) mmHG VBG pO2 72 H (30-40) mmHG VBG HCO3 32 H (22-30) mEq/L VBG Total CO2 29 L (41-51) mmol/L VBG Base Excess 7.7 H (-3.0-3.0) Sodium 139 (136-148) mmol/L Potassium 5.7 H (3.5-5.1) mmol/L Chloride 98 (98-107) mmol/L Carbon Dioxide 31.6 (21.0-32.0) mmol/L BUN 46 H (7.0-18.0) mg/dL Creatinine 7.7 H (0.8-1.3) mg/dL Est Cr Clr Drug Dosing TNP Estimated GFR (MDRD) 7.3 ml/min Glucose 142 H (74-106) mg/dL POC Glucose (60-110) mg/dL Calcium 10.0 (8.5-10.1) mg/dL Ketones (NEG) 06/12/19 06/12/19 Range/Units 18:00 18:13 WBC (4.0-11.0) K/uL RBC (4.50-5.90) M/uL Hgb (13.0-17.0) g/dL Hct (38.0-50.0) % MCV (80.0-98.0) fL MCH (27.0-32.0) pg MCHC (31.0-37.0) g/dL RDW Std Deviation (28.0-62.0) fl RDW Coeff of René (11.0-15.0) % Plt Count (150-400) K/uL MPV (7.40-12.00) fL Neut % (Auto) (48.0-80.0) % Lymph % (Auto) (16.0-40.0) % Brown % (Auto) (0.0-15.0) % Eos % (Auto) (0.0-7.0) % Baso % (Auto) (0.0-1.5) % Neut # (Auto) (1.4-5.7) K/uL Lymph # (Auto) (0.6-2.4) K/uL Brown # (Auto) (0.0-0.8) K/uL Eos # (Auto) (0.0-0.7) K/uL Baso # (Auto) (0.0-0.1) K/uL Nucleated RBC % /100WBC Nucleated RBCs # K/uL VBG pH (7.31-7.41) VBG pCO2 (35-45) mmHG VBG pO2 (30-40) mmHG VBG HCO3 (22-30) mEq/L VBG Total CO2 (41-51) mmol/L VBG Base Excess (-3.0-3.0) Sodium (136-148) mmol/L Potassium (3.5-5.1) mmol/L Chloride (98-107) mmol/L Carbon Dioxide (21.0-32.0) mmol/L BUN (7.0-18.0) mg/dL Creatinine (0.8-1.3) mg/dL Est Cr Clr Drug Dosing Estimated GFR (MDRD) ml/min Glucose (74-106) mg/dL POC Glucose 133 H (60-110) mg/dL Calcium (8.5-10.1) mg/dL Ketones NEGATIVE (NEG) Meds: Medications Discontinued Medications Generic Name Dose Route Start Last Admin Trade Name Freq PRN Reason Stop Dose Admin Meclizine HCl 25 mg 06/12/19 18:08 06/12/19 18:10 Antivert PO 06/12/19 18:09 25 mg ONETIME ONE Administration Metoclopramide HCl 10 mg 06/12/19 18:38 06/12/19 18:43 Reglan IVPUSH 06/12/19 18:39 10 mg ONETIME ONE Administration Ondansetron HCl 4 mg 06/12/19 18:01 06/12/19 18:08 Zofran IVPUSH 06/12/19 18:02 4 mg ONETIME ONE Administration Departure - Departure Time of Disposition: 20:13 Disposition: Home, Self-Care 01 Condition: Good Clinical Impression: Dizziness, Vomiting - Discharge Information Instructions: Nausea and Vomiting, Adult, [id number] Referrals: Conrado Wilde MD [Primary Care Provider] - Forms: ED Department Discharge Sepsis Event Note - Evaluation Sepsis Screening Result: No Definite Risk - Focused Exam Vital Signs: Vital Signs Temp Pulse Resp BP Pulse Ox 06/12/19 18:43 79 16 142/66 H 99 06/12/19 18:01 35.5 C L 90 16 119/65 98 Date Exam was Performed: 06/12/19 Time Exam was Performed: 20:04
== END 2019-06-12 20:20 | disposition home or self-care (01) ==
LOC: MW.ED 17:48
DX: R42 Dizziness and giddiness (principal); R11.10 Vomiting, unspecified; I10 Essential (primary) hypertension; E78.00 Pure hypercholesterolemia, unspecified; K21.9 Gastro-esophageal reflux disease without esophagitis; E11.40 Type 2 diabetes mellitus with diabetic neuropathy, unspecified; E03.9 Hypothyroidism, unspecified; Z79.899 Other long term (current) drug therapy; Z79.4 Long term (current) use of insulin
CPT/HCPCS: 36415; 70450; 80048; 82009; 82803; 82962; 85025; 93005; 96374; 96375; 99284; A9270; J2405; J2765

== ENCOUNTER 2019-09-14 12:48 | Emergency (ER) | payer MEDICARE, MEDICAID ==
--- NOTE | 2019-09-14 12:57 | EDM.PDOC ---
ED HPI GENERAL MEDICAL PROBLEM - General Chief Complaint: General Stated Complaint: MEADICAL CLEARANCE Time Seen by Provider: 09/14/19 12:49 Source of Information: Reports: Patient History Limitations: Reports: No Limitations - History of Present Illness INITIAL COMMENTS - FREE TEXT/NARRATIVE: HISTORY AND PHYSICAL: History of present illness: Patient is a 59-year-old male who is brought to the emergency room by law enforcement for medical screening exam. Patient has a longstanding history of multiple chronic illnesses (DM2, heart disease, dialysis) which he takes multiple medications for and does receive dialysis routinely. Patient states he has all of his medications available to him, they are currently at home. He states he otherwise feels healthy and offers no current complaints or concerns. Law enforcement states he needed to be evaluated due to his chronic illnesses although has no immediate concerns. Patient denies any fever, chills, headache, change in vision, syncope or near syncope. Denies any chest pain, back pain, shortness of breath or cough. Denies any abdominal pain, nausea, vomiting, diarrhea, constipation or dysuria. Has not noted any blood in urine or stool. Patient has been eating and drinking appropriately. Denies any alcohol or drug abuse. Review of systems: As per history of present illness and below otherwise all systems reviewed and negative. Past medical history: As per history of present illness and as reviewed below otherwise noncontributory. Surgical history: As per history of present illness and as reviewed below otherwise noncontributory. Social history: See social history for further information Family history: As per history of present illness and as reviewed below otherwise noncontributory. Physical exam: General: Well-developed and well-nourished 59-year-old male. Alert and oriented. Nontoxic-appearing and in no acute distress. HEENT: Atraumatic, normocephalic, pupils equal and reactive bilaterally, negative for conjunctival pallor or scleral icterus - wears eye patch, mucous membranes moist, trachea midline. No drooling or trismus noted. No meningeal signs. No hot potato voice noted. Lungs: Clear to auscultation, breath sounds equal bilaterally. Heart: S1S2, regular rate and rhythm without overt murmur Abdomen: Soft, nondistended, nontender. Skin: Intact, warm, dry. No lesions or rashes noted. Extremities: Atraumatic, moves all extremities per self without difficulty or deficits. Neurovascular unremarkable. Neuro: Awake, alert, oriented. Cranial nerves II through XII unremarkable. Cerebellum unremarkable. Motor and sensory unremarkable throughout. Exam nonfocal. Notes: Law enforcement was made aware that he needs to continue his home medications and receive dialysis as directed. Follow up and supportive care measures were reviewed and discussed. Voices understanding and is agreeable to plan of care. Denies any further questions or concerns at this time. Diagnostics: None Therapeutics: None Prescription: None Impression: Encounter for medical screening exam History of chronic illness Plan: 1. Take all your home medications as directed. 2. Attend dialysis as directed. 3. Follow up with your primary care provider as directed. Return to the ED as needed as discussed. Definitive disposition and diagnosis as appropriate pending reevaluation and review of above. - Related Data Allergies Allergy/AdvReac Type Severity Reaction Status Date / Time No Known Allergies Allergy Verified 09/14/19 12:59 Home Meds: Home Meds Acetaminophen [Tylenol] 2 tab PO DAILY 06/24/18 [History] Brimonidine/Timolol [Combigan 0.2%/0.5% Ophth Soln] 1 drop EARLF BID 06/24/18 [History] Cholecalciferol (Vitamin D3) [Vitamin D3] 50,000 units PO ASDIRECTED 06/24/18 [History] Dorzolamide HCl 1 drop EYELF DAILY 06/24/18 [History] Furosemide 40 mg PO DAILY 06/24/18 [History] Insulin Glarg,Human.Rec.Analog [Lantus] 15 units SUBCUT BEDTIME 06/24/18 [History] Insulin Lispro [HumaLOG] 5 units SUBCUT ASDIRECTED PRN 06/24/18 [History] Ketoconazole [Nizoral 2% Crm] 1 applic TOP ASDIRECTED PRN 06/24/18 [History] Latanoprost/Pf [Latanoprost 0.005% Eye Drop] 1 drop EYELF BEDTIME 06/24/18 [History] Levothyroxine Sodium [Synthroid] 112 mcg PO ASDIRECTED 06/24/18 [History] Levothyroxine Sodium [Synthroid] 125 mg PO ASDIRECTED 06/24/18 [History] Losartan Potassium 100 mg PO DAILY 06/24/18 [History] Multivitamin/Iron/Folic Acid [Centrum Adults Tablet] 1 tab PO DAILY 06/24/18 [History] Ranitidine HCl 150 mg PO BID 06/24/18 [History] Rosuvastatin Calcium 20 mg PO DAILY 06/24/18 [History] dilTIAZem HCL [Dilt-XR] 120 mg PO DAILY 06/24/18 [History] hydrOXYzine HCL [hydrOXYzine] 25 mg PO QID PRN 06/24/18 [History] traZODone HCl [Trazodone HCl] 50 mg PO BEDTIME 06/24/18 [History] Albuterol Sulfate [Albuterol Sulfate Hfa] 1 puff INH ASDIRECTED 05/23/19 [History] Past Medical History HEENT History: Reports: Glaucoma, Impaired Vision, Other (See Below) Other HEENT History: wears glasses, no teeth, rt eye prostesis Cardiovascular History: Reports: Heart Murmur, High Cholesterol, Hypertension Other Cardiovascular History: "slight murmur" Respiratory History: Reports: None Gastrointestinal History: Reports: GERD Genitourinary History: Reports: Dialysis Other Genitourinary History: dialysis on thursday, thursday and thursday Musculoskeletal History: Reports: None Neurological History: Reports: Neuropathy, Diabetic Psychiatric History: Reports: None Endocrine/Metabolic History: Reports: Diabetes, Type II, Hypothyroidism Hematologic History: Reports: None Immunologic History: Reports: None Oncologic (Cancer) History: Reports: None Dermatologic History: Reports: None - Infectious Disease History Infectious Disease History: Reports: None - Past Surgical History Head Surgeries/Procedures: Reports: None HEENT Surgical History: Reports: Cataract Surgery, Eye Surgery Cardiovascular Surgical History: Reports: None Respiratory Surgical History: Reports: None GI Surgical History: Reports: Other (See Below) Other GI Surgeries/Procedures: hx laparoscopy Male Surgical History: Reports: Other (See Below) Other Male Surgeries/Procedures: peritoneal dialysis cath placement, AV fistula insertion-lt upper arm Endocrine Surgical History: Reports: None Neurological Surgical History: Reports: None Musculoskeletal Surgical History: Reports: Shoulder Surgery, Other (See Below) Other Musculoskeletal Surgeries/Procedures:: rt foot surgery x2, 2nd toe amputation-rt foot Oncologic Surgical History: Reports: None Dermatological Surgical History: Reports: None Social & Family History - Family History Family Medical History: Noncontributory - Caffeine Use Caffeine Use: Reports: Coffee ED ROS GENERAL - Review of Systems Review Of Systems: Comprehensive ROS is negative, except as noted in HPI. ED EXAM, GENERAL - Physical Exam Exam: See Below (See dictation) Course - Vital Signs Last Recorded V/S: Last Vital Signs Temp 98.9 F 09/14/19 12:56 Pulse 78 09/14/19 12:56 Resp 16 09/14/19 12:56 BP 175/83 H 09/14/19 12:56 Pulse Ox 98 09/14/19 12:56 Departure - Departure Time of Disposition: 13:03 Disposition: Home, Self-Care 01 Clinical Impression: Encounter for medical screening examination, Chronic illness - Discharge Information Instructions: Medical Screening Exam Referrals: Conrado Wilde MD [Primary Care Provider] - Forms: ED Department Discharge Additional Instructions: The following information is given to patients seen in the emergency department who are being discharged to home. This information is to outline your options for follow-up care. We provide all patients seen in our emergency department with a follow-up referral. The need for follow-up, as well as the timing and circumstances, are variable depending upon the specifics of your emergency department visit. If you don't have a primary care physician on staff, we will provide you with a referral. We always advise you to contact your personal physician following an emergency department visit to inform them of the circumstance of the visit and for follow-up with them and/or the need for any referrals to a consulting specialist. The emergency department will also refer you to a specialist when appropriate. This referral assures that you have the opportunity for follow-up care with a specialist. All of these measure are taken in an effort to provide you with optimal care, which includes your follow-up. Under all circumstances we always encourage you to contact your private physician who remains a resource for coordinating your care. When calling for follow-up care, please make the office aware that this follow-up is from your recent emergency room visit. If for any reason you are refused follow-up, please contact the [facility] Emergency Department at and asked to speak to the emergency department charge nurse. [facility] [address] [place] [id number] [facility] [address] [place] [address] Thank you for choosing the [facility] emergency department in [place] for your medical needs today. It was a pleasure caring for you. You were seen in the emergency department for medical screening exam. 1. Take all your home medications as directed. 2. Attend dialysis as directed. 3. Follow up with your primary care provider as directed. Return to the ED as ne eded as discussed. Sepsis Event Note (ED) - Focused Exam Vital Signs: Vital Signs Temp Pulse Resp BP Pulse Ox 09/14/19 12:56 98.9 F 78 16 175/83 H 98
== END 2019-09-14 13:15 ==
LOC: MW.ED 12:48
DX: Z13.89 Encounter for screening for other disorder (principal); E11.40 Type 2 diabetes mellitus with diabetic neuropathy, unspecified; I10 Essential (primary) hypertension; E78.00 Pure hypercholesterolemia, unspecified; K21.9 Gastro-esophageal reflux disease without esophagitis; E03.9 Hypothyroidism, unspecified; Z79.4 Long term (current) use of insulin; Z99.2 Dependence on renal dialysis; Z79.899 Other long term (current) drug therapy
CPT/HCPCS: 99283

== ENCOUNTER 2022-01-16 11:39 | Emergency (ER) | payer MEDICARE, MEDICAID ==
[2022-01-16] MEDS ORDERED: amLODIPine 5 MG Tab PO ONE (12:17)
[2022-01-16] MEDS ORDERED: Carvedilol 25 MG Tab PO ONE (12:19)
[2022-01-16 13:46] LABS: CARBON DIOXIDE,CO2 28.1 mmol/L (21.0-32.0); POTASSIUM,K 4.3 mmol/L (3.5-5.1)
== END 2022-01-16 14:12 | disposition home or self-care (01) ==
LOC: MW.ED 11:39
DX: I10 Essential (primary) hypertension (principal); E78.00 Pure hypercholesterolemia, unspecified; E11.9 Type 2 diabetes mellitus without complications; Z91.14 Patient's other noncompliance with medication regimen; Z79.899 Other long term (current) drug therapy
CPT/HCPCS: 36415; 36430; 71045; 80053; 84484; 85025; 93005; 99284; A9270; J7050; P9016

== ENCOUNTER 2024-03-11 07:07 | Emergency (ER) | payer MEDICARE, MEDICAID ==
[2024-03-11 07:34] LABS: BASOPHILS ABSOLUTE AUTO 0.05 K/uL (0.00-0.20); BASOPHILS PERCENT AUTO 0.8 % (0.0-1.0); EOSINOPHILS ABSOLUTE AUTO 0.27 K/uL (0.00-0.45); EOSINOPHILS PERCENT AUTO 4.5 % (0.0-6.0); HEMATOCRIT 23.3 % (42.0-52.0); HEMOGLOBIN 8.2 g/dL (14.0-18.0); IMMATURE GRAN ABSOLUTE AUTO 0.02 K/uL (0.00-0.05); IMMATURE GRAN PERCENT AUTO 0.3 % (0.0-0.4); LYMPHOCYTES ABSOLUTE AUTO 1.87 K/uL (1.00-4.80); LYMPHOCYTES PERCENT AUTO 30.9 % (24.0-44.0); MEAN CORPUSCULAR HEMOGLOBIN 31.8 pg (28.0-32.0); MEAN CORPUSCULAR HGB CONC 35.2 g/dL (32.0-36.0); MEAN CORPUSCULAR VOLUME 90.3 fL (83.0-99.0); MEAN PLATELET VOLUME 9.2 fL (9.4-12.4); MONOCYTES ABSOLUTE AUTO 0.51 K/uL (0.00-0.80); MONOCYTES PERCENT AUTO 8.4 % (0.0-8.0); NEUTROPHILS ABSOLUTE AUTO 3.33 K/uL (1.80-7.70); NEUTROPHILS PERCENT AUTO 55.1 % (41.0-71.0); PLATELET COUNT,PLT 176 K/uL (150-400); RED BLOOD CELL COUNT 2.58 M/uL (4.52-5.90); WHITE BLOOD CELL COUNT,WBC 6.05 K/uL (3.9-11.3)
[2024-03-11 07:56] LABS: CARBON DIOXIDE,CO2 29.6 mmol/L (21.0-32.0); CREATININE 11.4 mg/dL (0.8-1.3); EST CRCL DRUG DOSING (CG) 6.58 mL/min; POTASSIUM,K 4.2 mmol/L (3.5-5.1)
== END 2024-03-11 12:20 ==
LOC: MW.ED 07:07
DX: R42 Dizziness and giddiness (principal); E11.9 Type 2 diabetes mellitus without complications; Z79.4 Long term (current) use of insulin; Z79.51 Long term (current) use of inhaled steroids; Z79.890 Hormone replacement therapy; Z79.899 Other long term (current) drug therapy
CPT/HCPCS: 36415; 80048; 82947; 84484; 85025; 93005; 96374; 99285; J3360

== ENCOUNTER 2024-03-16 08:39 | Emergency (ER) | payer MEDICARE, MEDICAID ==
[2024-03-16] MEDS ORDERED: Sodium Chloride 0.9% 10 ML Syringe FLUSH PRN (08:55)
[2024-03-16] MEDS ORDERED: Sodium Chloride 0.9% 2.5 ML Syringe FLUSH PRN (08:55)
[2024-03-16 09:02] LABS: BASOPHILS ABSOLUTE AUTO 0.07 K/uL (0.00-0.20); BASOPHILS PERCENT AUTO 0.7 % (0.0-1.0); EOSINOPHILS ABSOLUTE AUTO 0.17 K/uL (0.00-0.45); EOSINOPHILS PERCENT AUTO 1.6 % (0.0-6.0); HEMATOCRIT 25.3 % (42.0-52.0); HEMOGLOBIN 8.7 g/dL (14.0-18.0); IMMATURE GRAN ABSOLUTE AUTO 0.06 K/uL (0.00-0.05); IMMATURE GRAN PERCENT AUTO 0.6 % (0.0-0.4); LYMPHOCYTES ABSOLUTE AUTO 1.94 K/uL (1.00-4.80); LYMPHOCYTES PERCENT AUTO 18.3 % (24.0-44.0); MEAN CORPUSCULAR HEMOGLOBIN 31.8 pg (28.0-32.0); MEAN CORPUSCULAR HGB CONC 34.4 g/dL (32.0-36.0); MEAN CORPUSCULAR VOLUME 92.3 fL (83.0-99.0); MEAN PLATELET VOLUME 9.8 fL (9.4-12.4); MONOCYTES ABSOLUTE AUTO 1.19 K/uL (0.00-0.80); MONOCYTES PERCENT AUTO 11.2 % (0.0-8.0); NEUTROPHILS ABSOLUTE AUTO 7.19 K/uL (1.80-7.70); NEUTROPHILS PERCENT AUTO 67.6 % (41.0-71.0); PLATELET COUNT,PLT 165 K/uL (150-400); RED BLOOD CELL COUNT 2.74 M/uL (4.52-5.90); WHITE BLOOD CELL COUNT,WBC 10.62 K/uL (3.9-11.3)
[2024-03-16 09:39] LABS: A/G RATIO 0.8 (0.9-1.6); ALBUMIN 3.7 g/dL (3.4-5.0); BILIRUBIN TOTAL 0.8 mg/dL (0.2-1.0); CALCIUM 9.8 mg/dL (8.5-10.1); CARBON DIOXIDE,CO2 29.7 mmol/L (21.0-32.0); CREATININE 8.3 mg/dL (0.8-1.3); EST CRCL DRUG DOSING (CG) 9.39 mL/min; POTASSIUM,K 5.1 mmol/L (3.5-5.1); PROTEIN TOTAL,TP 8.1 g/dL (6.4-8.2)
[2024-03-16] MEDS: Azithromycin 500 MG in Sodium Chloride 0.9% 250 ML IV ONE (09:53)
[2024-03-16] MEDS: cefTRIAXone 2 GM in Sodium Chloride 0.9% 50 ML IV ONE (09:53)
[2024-03-16] MEDS: Acetaminophen 325 MG Tab PO ONE (10:06)
[2024-03-16 10:33] LABS: CORONAVIRUS COVID-19 NAA NEGATIVE (NEGATIVE); INFLUENZA A NAA POSITIVE (NEGATIVE); INFLUENZA B NAA NEGATIVE (NEGATIVE)
[2024-03-16] MEDS: Oseltamivir 30 MG Cap PO STA (11:43)
== END 2024-03-16 13:15 ==
LOC: MW.ED 08:39
DX: J18.9 Pneumonia, unspecified organism (principal); J10.1 Influenza due to other identified influenza virus with other respiratory manifestations; N18.6 End stage renal disease; D63.1 Anemia in chronic kidney disease; K21.9 Gastro-esophageal reflux disease without esophagitis; E11.22 Type 2 diabetes mellitus with diabetic chronic kidney disease; Z79.4 Long term (current) use of insulin; Z79.890 Hormone replacement therapy; Z79.51 Long term (current) use of inhaled steroids; Z99.2 Dependence on renal dialysis; Z79.899 Other long term (current) drug therapy
CPT/HCPCS: 0240U; 36415; 71045; 80053; 83880; 84484; 85025; 85379; 87040; 93005; 96365; 96367; 99285; A9270; J0456; J0696; J3490; J7050; 93010; 99291

== ENCOUNTER 2024-04-03 19:06 | Emergency (ER) | payer MEDICARE, MEDICAID ==
[2024-04-03 20:02] LABS: BASOPHILS ABSOLUTE AUTO 0.09 K/uL (0.00-0.20); BASOPHILS PERCENT AUTO 1.4 % (0.0-1.0); EOSINOPHILS ABSOLUTE AUTO 0.14 K/uL (0.00-0.45); EOSINOPHILS PERCENT AUTO 2.1 % (0.0-6.0); HEMATOCRIT 32.2 % (42.0-52.0); HEMOGLOBIN 11.3 g/dL (14.0-18.0); IMMATURE GRAN ABSOLUTE AUTO 0.01 K/uL (0.00-0.05); IMMATURE GRAN PERCENT AUTO 0.2 % (0.0-0.4); LYMPHOCYTES ABSOLUTE AUTO 0.98 K/uL (1.00-4.80); MEAN CORPUSCULAR HEMOGLOBIN 31.7 pg (28.0-32.0); MEAN CORPUSCULAR HGB CONC 35.1 g/dL (32.0-36.0); MEAN CORPUSCULAR VOLUME 90.4 fL (83.0-99.0); MEAN PLATELET VOLUME 9.1 fL (9.4-12.4); MONOCYTES ABSOLUTE AUTO 0.86 K/uL (0.00-0.80); MONOCYTES PERCENT AUTO 13.1 % (0.0-8.0); NEUTROPHILS ABSOLUTE AUTO 4.46 K/uL (1.80-7.70); NEUTROPHILS PERCENT AUTO 68.2 % (41.0-71.0); PLATELET COUNT,PLT 181 K/uL (150-400); RED BLOOD CELL COUNT 3.56 M/uL (4.52-5.90); WHITE BLOOD CELL COUNT,WBC 6.54 K/uL (3.9-11.3)
[2024-04-03 20:30] LABS: A/G RATIO 0.9 (0.9-1.6); ALANINE AMINOTRANSFERASE,ALT 101 IU/L (14-63); ALBUMIN 3.6 g/dL (3.4-5.0); ALKALINE PHOSPHATASE 118 U/L (46-116); ASPARTATE AMNIOTRANSFERASE,AST 34 IU/L (15-37); BILIRUBIN TOTAL 0.8 mg/dL (0.2-1.0); BLOOD UREA NITROGEN,BUN 39 mg/dL (7.0-18.0); CALCIUM 9.6 mg/dL (8.5-10.1); CARBON DIOXIDE,CO2 26.1 mmol/L (21.0-32.0); CHLORIDE,CL 96 mmol/L (98-107); CREATININE 8.1 mg/dL (0.8-1.3); ESTIMATED GFR 7 mL/min (>60); GLUCOSE RANDOM 123 mg/dL (74-106); LIPASE 24 U/L (16-77); POTASSIUM,K 4.3 mmol/L (3.5-5.1); PROTEIN TOTAL,TP 7.7 g/dL (6.4-8.2); SODIUM,NA 136 mmol/L (136-148)
[2024-04-03] MEDS: Ondansetron 4 MG Tab.DIS PO ONE (20:47)
[2024-04-03] MEDS: Albuterol/Ipratropium 3.0-0.5 MG/3 ML Neb Soln NEB ONE (20:47)
[2024-04-03] MEDS: Acetaminophen/HYDROcodone 325-5 MG Tab PO ONE (21:09)
== END 2024-04-03 21:58 | disposition home or self-care (01) ==
LOC: MW.ED 19:06
DX: J45.909 Unspecified asthma, uncomplicated (principal); R06.02 Shortness of breath; G89.29 Other chronic pain; M54.50 Low back pain, unspecified; N18.6 End stage renal disease; E11.9 Type 2 diabetes mellitus without complications; Z75.8 Other problems related to medical facilities and other health care; Z79.4 Long term (current) use of insulin; Z79.890 Hormone replacement therapy; Z79.899 Other long term (current) drug therapy
CPT/HCPCS: 36415; 71046; 80053; 83690; 84484; 85025; 87428; 93005; 99285; A9270; J7620-GY